=== PATIENT | female | born 1995 | race Caucasian/White ===

== ENCOUNTER 2018-11-12 04:22 | Emergency (ER) | payer OTHER ==
--- OUTSIDE RECORDS SUMMARY | 2018-11-12 04:25 | XMS REPORT ---
:1995 [facility] Address [address] [place] [address] [address] [place] [address] Care Team Providers Name Role Phone Harvinder Churchill Unavailable Unavailable Nehemiah Lui Unavailable Unavailable Problems This patient has no known problems. Allergies, Adverse Reactions, Alerts This patient has no known allergies or adverse reactions. Medications This patient has no known medications. Results Test Description Test Time Test Comments Text Results Atomic Results Result Comments [id number] 2017-05-13 SURGICAL 10:25:00 [facility] PATHOLOGY, [address] [place] [address] LEVEL V Laboratory Printed: 05/13/[address] [place] [address] DAEMPathology Page : 1 Patient: SERENE EGAN Birthdate: 1995 Age/Sex: 21/F Spec#: [id number]: Harvinder Churchill Jr, MD Specimen Date: 05/08/17 Received Date: 05/10/17 Specimen: PLACENTA, THIRD TRIMESTER CLINICAL DIAGNOSIS term IUP at 41 weeks with meconium with a postdate induction PATHOLOGIC DIAGNOSIS Placenta, delivery by section, clinical trimester third: Gross/microscopically determined trimester: Third. Gross features of placental disc: - Weight -- 504 grams. - Thickness -- 1.8 cm. - Shape/morphology -- Discoid. Gross features of umbilical cord: - Insertion -- Eccentric. - Number of vessels -- Three. - Length -- 47.0 cm. - Diameter -- 1.3 cm. Insertion of membrane: Circumvallate type. Microscopic findings: - Placental villi -- - Mature type. - Subchorionic fibrin deposits. - Subchorionic deposits of neutrophils. - membranes -- - Acute chorioamnionitis. - Areas of increased pigmented macrophages consistent with meconium staining. - Decidua -- Areas of acute deciduitis. Patient: SERENE EGAN Re07/21Loc: AMBER MR#: [id number] CONTINUED ON NEXT PAGE Dis: ta: DIS IN [address] [address] Laboratory Printed: 05/13/[address] [place] [address] DAEMPathology Page : 2 Patient: SERENE EGAN [id number] (Continued) PATHOLOGIC DIAGNOSIS (Continued) - Maternal vessels -- No significant pathologic changes identified. - Umbilical cord -- Acute funisitis. Pathologist:Maurice Caspre MD Entered by:05/13/17 0933 LAB.YGP PROCEDURES: [id number] GROSS DESCRIPTION A. PLACENTA, THIRD TRIMESTER PLACENTA AND CORD The specimen is received in 10% formalin, and is labeled with the patient's name and"placenta and cord". The specimen consists of a single discoid shaped placenta with atrimmed weight of 504 grams. The placenta measures 17.0 x 15.0 x 1.8 cm in greatestdimensions. The cord is located eccentrically 4.5 cm from the nearest margin. There aretwo portions of cord. The first attached portion measures 27.0 cm in length with a 1.4 cmdiameter. The second detached portion of cord measures 20.0 cm in length with a 1.3 cmdiameter. Cut sectioning of the umbilical cord reveals three vessels, and it has a slightgreen- yellow tinge. The membrane is inserted circumvallate. It is thin and semi-translucent with a green- yellow mucoid consistency throughout. The aspects have anoverall mucoid consistency with a slight green-yellow discoloration. Cut sectioning of thevessels reveal a harrington-white infarct- like discoloration measuring 1.0 x 0.8 x 0.8 cm justbelow the surface. The maternal aspects have a normal-appearing red-maroon cotyledonand upon cut sectioning reveals a red-maroon spongy cut surface with no additional grossabnormalities. Public Policy Analyst sections submitted in three cassettes , A1-3. Section code:A1 - cord and membraneA2 - aspectsA3 - maternal aspects Dictated by: Lizz Patel Entered by: 05/10/17 - 1114 LAB.YGP Patient: SERENE EGAN Re05/08/17Loc: AMBER MR#: [id number] CONTINUED ON NEXT PAGE Dis: ta: DIS IN [address] [address] Laboratory Printed: 05/13/[address] [place] [address] DAEMPathology Page : 3 Patient: SERENE EGAN [id number] (Continued) GROSS DESCRIPTION (Continued) MICROSCOPIC DESCRIPTION A microscopic examination was performed to arrive at the diagnostic conclusion reported. Signed _ (Electronically Signed) Maurice Casper MD 05/13/17 Patient: SERENE EGAN Re05/08/17Loc : AMBER MR#: [id number] END OF REPORT Dis: 05/11/17ta: DIS IN Hematology 2017-05-09 06:19:00 Test Item Value Reference Range Comments Hematology (test code=WBCT) 23.3 thou/uL 4.8-10.8 Hematology (test code=RBCT) 3.87 mill/uL 4.00-5.20 Hematology (test code=HGBT) 7.7 g/dL 12.0-16.0 Hematology (test code=HCTT) 23.9 % 36.0-47.0 Hematology (test code=MCV) 61.9 fl 77.0-87.0 Hematology (test code=MCH) 19.8 pg 25.0-35.0 Hematology (test code=MCHC) 32.0 g/dL 32.0-36.0 Hematology (test code=RDW) 13.9 % 11.5-14.5 Hematology (test code=PLTT) 224 thou/uL 130-400 Hematology (test code=MPV) 11.9 fL 7.4-10.4 ABG's - [id number] 23:25:00 Test Item Value Reference Range Comments ABG's - Cardiopulmonary (test code=pHC) 7.29 7.28-7.32 ABG's - Cardiopulmonary (test code=PcCO2) 50.6 mmHg 44.0-56.0 ABG's - Cardiopulmonary (test code=HCO3a) 24.0 mEq/L 22-26 ABG's - Cardiopulmonary (test code=Leslie) -3.2 mEq/L 0 (+/-) 2.5 Chemistry - [id number] 14:22:00 Test Item Value Reference Range Comments Chemistry - Specials (test code=THBSAG) Non-Reactive S/CO NonReactive [id number] 14:20:00 Test Item Value Reference Range Comments Immunology (test code=SYPHABT) Nonreactive Nonreactive [id number] 13:55:00 Test Item Value Reference Range Comments Hematology (test code=WBCT) 16.4 thou/uL 4.8-10.8 Hematology (test code=RBCT) 5.03 mill/uL 4.00-5.20 Hematology (test code=HGBT) 10.3 g/dL 12.0-16.0 Hematology (test code=HCTT) 31.1 % 36.0-47.0 Hematology (test code=MCV) 61.9 fl 77.0-87.0 Hematology (test code=MCH) 20.5 pg 25.0-35.0 Hematology (test code=MCHC) 33.2 g/dL 32.0-36.0 Hematology (test code=RDW) 14.2 % 11.5-14.5 Hematology (test code=PLTT) 268 thou/uL 130-400 Hematology (test code=MPV) 9.6 fL 7.4-10.4 [id number] 00:28:00 Test Item Value Reference Range Comments Urinalysis (test code=AMNI-T) No Membranes Rupture No Rupture Vaginitis Panel 3 by DNA [id number] 20:57:00 Test Item Value Reference Range Comments Vaginitis Panel 3 by DNA Probe (test code=VP3) VPIIICANDI Vaginitis Panel 3 by DNA Probe (test code=VP31) N Vaginitis Panel 3 by DNA Probe (test code=VP31) VPIIITRICH [id number] 20:19:00 Test Item Value Reference Range Comments Urinalysis (test code=UACLR) RUFINA Yellow Urinalysis (test code=UACLY) CLEAR Clear Urinalysis (test code=SPGR) 1.014 1.002-1.036 Urinalysis (test code=TRI) 6.0 5.0-9.0 Urinalysis (test code=UALEU) Negative Negative Urinalysis (test code=UANIT) Negative Negative Urinalysis (test code=PROUADIP) Negative mg/dL Neg-Trace Urinalysis (test code=GLUCU) 100 mg/dL Negative Urinalysis (test code=KETU) Negative mg/dL Negative Urinalysis (test code=UAUROB) 2.0 mg/dL 0.2-1.0 Urinalysis (test code=UABIL) Negative Negative Urinalysis (test code=UABLD) Negative Negative Urinalysis (test code=UARBC) 4-6 HPF 0-3 Urinalysis (test code=UAWBC) 0-3 HPF 0-3 Urinalysis (test code=UASQUAM) 0-3 HPF 0-3 Urinalysis (test code=UABAC) None Seen HPF None Seen Urinalysis (test code=UACAST) 0-3 HYALINE CAST LPF 0-3 Hyaline Urine Source: Urine Clean [id number] SURGICAL PATHOLOGY, LEVEL [id number] 15: 16:00 [place] [address] Laboratory Printed: 07/30/16 1517 [facility] DAEMPathology Fax: Page: 1 Patient: SERENE EGAN Birthdate: 1995 Age/Sex: 21/F Spec#: [id number]: Nehemiah Lui MD Specimen Date: 07/26/16 Received Date: 07/27/16 Specimen: PRODUCTS OF CONCEPTION CLINICAL DIAGNOSIS vaginal bleeding PATHOLOGIC DIAGNOSIS Tissue labeled "products of conception" (site unspecified): - Products of conception. Comment: Immature chorionic villi and decidualized endometrium are present. There is nogestational trophoblastic disease (complete or partial mole ) or neoplasmpresent. Pathologist:Remi Tilley MD Entered by:07/30/16 - 1325 LAB.YGP PROCEDURES: [id number] GROSS DESCRIPTION A. PRODUCTS OF CONCEPTION The specimen is received in 10% formalin, and is labeled with the patient's name and"products ofconception". The specimen consists of a pink-harrington oval shaped soft tissuefragment measuring 4.7 x 2.5 x 1.3 cm in greatest dimensions. Upon sectioning it reveals apink-harrington to red colored spongy surface and a cavity containing some fluid. No grosslyrecognizable tissue is identified. Public Policy Analyst sections are submitted in threecassettes, A1-3. Dictated by: LOLI GONZALEZ Patient: SERENE EGAN Re07/26/16Loc: EZEKIEL MR#: [id number] CONTINUED ON NEXT PAGE Dis: Sta: [facility] [address] [address] Laboratory Printed: 07/30/[address] [place] [address] [facility] Page: 2 Patient: SERENE EGAN [id number] (Continued) GROSS DESCRIPTION (Continued) Entered by: - [address] MICROSCOPIC DESCRIPTION A microscopic examination was performed to arrive at the diagnostic conclusion reported.Signed (Electronically Signed) Remi Tilley MD Patient: SERENE EGAN Re07/26/16Loc: EZEKIEL MR#: [id number] END OF REPORT Dis: Sta: DEP [id number] 22:21:00 Test Item Value Reference Range Comments Urinalysis (test Red Yellow code=UACLR) Urinalysis (test Cloudy Clear code=UACLY) Urinalysis (test 1.026 1.002-1.036 code=SPGR) Urinalysis (test 5.0 5.0-9.0 code=TRI) Urinalysis (test Unable to Interpret Negative Unable to perform code=UALEU) dipstick biochemicals due to colorinterference. A microscopic analysis will be performed. Urinalysis (test Unable to Interpret Negative Unable to perform code=UANIT) dipstick biochemicals due to colorinterference. A microscopic analysis will be performed. Urinalysis (test > or equal to 300 Neg-Trace code=PROUADIP) mg/dL Urinalysis (test Negative mg/dL Negative code=GLUCU) Urinalysis (test Trace mg/dL Negative code=KETU) Urinalysis (test UNABLE TO INTERPRET 0.2-1.0 Unable to perform code=UAUROB) mg/dL dipstick biochemicals due to colorinterference; test not performed. Urinalysis (test Negative Negative code=UABIL) Urinalysis (test Large Negative code=UABLD) Urinalysis (test GREATER THAN 50-TNTC 0-3 code=UARBC) HPF Urinalysis (test None Seen HPF 0-3 code=UAWBC) Urinalysis (test 0-3 HPF 0-3 code=UASQUAM) Urinalysis (test None Seen HPF None Seen code=UABAC) Urine Source: Urine Clean CatchChemistry - [id number] 21:43:00 Test Item Value Reference Range Comments Chemistry - Specials (test 23.69 mIU/mL See Ranges Males and Non code=HCGQ) females: Less than 10 mIU/mLPregnancy, weeks of gestation mIU/mL 0.2 - 1 week 5 - 50 1 - 2 weeks 50 - 500 2 - 3 weeks 100 - 5,000 3 - 4 weeks 500 - 10,000 4 - 5 weeks 1,000 - 50,000 5 - 6 weeks 10,000 - 100,000 6 - 8 weeks 15,000 - 200,000 2 - 3 months 10,000 - 100,000 [id number] 21:33:00 Test Item Value Reference Range Comments Hematology (test code=WBCT) 9.4 thou/uL 4.8-10.8 Hematology (test code=RBCT) 5.69 mill/uL 4.00-5.20 Hematology (test code=HGBT) 11.1 g/dL 12.0-16.0 Hematology (test code=HCTT) 34.4 % 36.0-47.0 Hematology (test code=MCV) 60.5 fl 77.0-87.0 Hematology (test code=MCH) 19.5 pg 25.0-35.0 Hematology (test code=MCHC) 32.2 g/dL 32.0-36.0 Hematology (test code=RDW) 14.0 % 11.5-14.5 Hematology (test code=PLTT) 306 thou/uL 130-400 Hematology (test code=MPV) 7.2 fL 7.4-10.4 Hematology (test code=%NEUT) 67.6 % 31.0-61.0 Hematology (test code=%LYMPH) 26.6 % 28.0-48.0 Hematology (test code=%MONO) 4.5 % 0.0-4.0 Hematology (test code=%EOS) 0.7 % 0.0-10.0 Hematology (test code=%BASO) 0.6 % 0.0-1.0 Hematology (test code=NEUT#) 6.3 thou/uL 1.40-6.50 Hematology (test code=LYMPH#) 2.5 thou/uL 1.20-3.40 Hematology (test code=MONO#) 0.4 thou/uL 0.11-0.59 Hematology (test code=EOS#) 0.1 thou/uL 0.0-0.7 Hematology (test code=BASO#) 0.1 thou/uL 0.0-0.2 Hematology (test code=IA) SLIGHT=6-15 cells (100X) 0-5/hpf Hematology (test code=PCOMMENT) Appears Adequate Type [id number] 21:19:00 Test Item Value Reference Range Comments Blood Type Rh (test code=BT) OP
--- NOTE | 2018-11-12 04:50 | EDPHYS ---
Physician Documentation [facility] Name: Kasia Aguilar Age: 23 yrs Sex: Female : 1995 Arrival Date: 11/12/2018 Time: 04:23 Bed 7 Private MD: ED Physician Davy Vaughn HPI: 11/12 04:44 This 23 yrs old Female presents to ER via Wheelchair with complaints of rn Epigastric Pain. 04:44 The patient presents with abdominal pain in the epigastric area, in the right upper rn quadrant. Onset: The symptoms/episode began/occurred yesterday. The symptoms do not radiate. Associated signs and symptoms: Pertinent positives: nausea and vomiting. Modifying factors: The symptoms are alleviated by nothing, the symptoms are aggravated by touching the area. Severity of pain: At its worst the pain was moderate in the emergency department the pain is unchanged. The patient has not experienced similar symptoms in the past. Reports approx 20 weeks preg, + upper abd pain since yesterday, sent here by her OB, was cleared by L\T\D, still having pain so brought down to ER. No previous gallbladder problems. No fever. NO lower abd pain. NO diarrhea.. TAKE DOWN INSPECTOR: 04:37 3, Full Term 1, Living 1, Verified tl2 Historical: - Allergies: 04:46 No Known Allergies; tl2 - Home Meds: 04:46 None [Active]; tl2 - PMHx: 04:46 None; tl2 - PSHx: 04:46 ; tl2 - Immunization history:: Adult Immunizations up to date. - Social history:: Smoking status: Patient/guardian denies using tobacco. - Family history:: not pertinent. - Ebola Screening: : No symptoms or risks identified at this time. - Hospitalizations: : No recent hospitalization is reported. ROS: 04:44 Constitutional: Negative for fever, chills, and weight loss, Eyes: Negative for injury, rn pain, redness, and discharge, Neck: Negative for injury, pain, and swelling, Cardiovascular: Negative for chest pain, palpitations, and edema, Respiratory: Negative for shortness of breath, cough, wheezing, and pleuritic chest pain, Abdomen/GI: + upper abd pain and nausea/vomiting MS/Extremity: Negative for injury and deformity, Skin: Negative for injury, rash, and discoloration, Neuro: Negative for headache, weakness, numbness, tingling, and seizure. Exam: 04:44 Constitutional: This is a well developed, well nourished patient who is awake, alert, rn appears in pain and holding emesis bag Head/Face: Normocephalic, atraumatic. Eyes: Pupils equal round and reactive to light, extra-ocular motions intact. Lids and lashes normal. Conjunctiva and sclera are non-icteric and not injected. Cornea within normal limits. Periorbital areas with no swelling, redness, or edema. ENT: MMM Cardiovascular: tachycardic, no murmur, regular Respiratory: No increased work of breathing, no retractions or nasal flaring. Abdomen/GI: soft, + epigastric and RUQ tenderness, no rebound, neg rodriguez Skin: Warm, dry with normal turgor. Normal color with no rashes, no lesions, and no evidence of cellulitis. MS/ Extremity: Pulses equal, no cyanosis. Neurovascular intact. Full, normal range of motion. Equal circumference. Neuro: Awake and alert, GCS 15, oriented to person, place, time, and situation. Cranial nerves II-XII grossly intact. Motor strength 5/5 in all extremities. Sensory grossly intact. Cerebellar exam normal. Normal gait. Vital Signs: 04:37 BP 124 / 79; Pulse 112; Resp 18; Pulse Ox 98% on R/A; Weight 56.7 kg; Height 5 ft. 5 tl2 in. (165.10 cm); Pain 8/10; 04:37 Body Mass Index 20.80 (56.70 kg, 165.10 cm) tl2 MDM: 04:44 Patient medically screened. rn 04:44 Differential diagnosis: cholecystitis, Cholelithiasis, gastritis, gastroesophageal rn reflux disease, pancreatitis. Data reviewed: vital signs, nurses notes. ED course: Had long discussion with patient regarding high possibility that this is gallbladder related, needs bloodwork and u/s. U/S will not come out at this institution for gallbladder u/s overnight. Told her my recommendation would be to wait until 0800 when our u/s arrives, and get bloodwork and pain medication. Patient states would rather leave then and be seen somewhere else where ultrasound is more readily available. Plans to drive to another hospital. Risks of leaving explained. Patient eloped prior to any labs or meds given.. Administered Medications: No medications were administered Disposition: 11/12/18 04:49 Patient left the facility after being seen by provider. Preliminary diagnosis is Cholelithiasis. - Patient left due to wait time. - Condition is Stable. - Problem is new. - Symptoms are unchanged. Signatures: Davy Vaughn MD MD rn Brianna Cornejo RN RN tl2 Corrections: (The following items were deleted from the chart) 04:53 04:49 11/12/2018 04:49 Patient left the facility after being seen by provider. tl2 Preliminary diagnosis is Cholelithiasis. Reason stated they are leaving due to wait time. Condition is Stable. Problem is new. Symptoms are unchanged. rn
--- NOTE | 2018-11-12 04:50 | ER ---
Nurse's Notes [facility] Name: Kasia Aguilar Age: 23 yrs Sex: Female : 1995 Arrival Date: 11/12/2018 Time: 04:23 Bed 7 Private MD: Diagnosis: Cholelithiasis Presentation: 11/12 04:33 Presenting complaint: Patient states: Pt previously seen in L\T\D department for tl2 abdominal pain 21 weeks . Cleared by OB and sent to ER to be evaluated for epigastric pain and RUQ pain. Transition of care: patient was not received from another setting of care. Onset of symptoms was November 12, 2018 at 03:00. Risk Assessment: Do you want to hurt yourself or someone else? Patient reports no desire to harm self or others. Initial Sepsis Screen: Does the patient meet any 2 criteria? No. Patient's initial sepsis screen is negative. Does the patient have a suspected source of infection? No. Patient's initial sepsis screen is negative. Care prior to arrival: None. 04:33 Method Of Arrival: Wheelchair tl2 04:33 Acuity: SHAUN 3 tl2 Triage Assessment: 04:46 General: Appears in no apparent distress. uncomfortable, Behavior is cooperative, tl2 appropriate for age, anxious. Pain: Complains of pain in RUQ. GI: Reports upper abdominal pain, epigastric pain, nausea. Derm: Skin is pale. INFECTION CONTROL MANAGER: 04:37 3, Full Term 1, Living 1, Verified tl2 Historical: - Allergies: 04:46 No Known Allergies; tl2 - Home Meds: 04:46 None [Active]; tl2 - PMHx: 04:46 None; tl2 - PSHx: 04:46 ; tl2 - Immunization history:: Adult Immunizations up to date. - Social history:: Smoking status: Patient/guardian denies using tobacco. - Family history:: not pertinent. - Ebola Screening: : No symptoms or risks identified at this time. - Hospitalizations: : No recent hospitalization is reported. Screenin:38 Abuse screen: Denies threats or abuse. Nutritional screening: No deficits noted. tl2 Tuberculosis screening: No symptoms or risk factors identified. Fall Risk None identified. Vital Signs: 04:37 BP 124 / 79; Pulse 112; Resp 18; Pulse Ox 98% on R/A; Weight 56.7 kg; Height 5 ft. 5 tl2 in. (165.10 cm); Pain 8/10; 04:37 Body Mass Index 20.80 (56.70 kg, 165.10 cm) tl2 ED Course: 04:23 Patient arrived in ED. ds1 04:32 Brianna Cornejo, RN is Primary Nurse. tl2 04:35 Triage completed. tl2 04:38 Patient has correct armband on for positive identification. Placed in gown. Bed in low tl2 position. Call light in reach. Side rails up X2. Adult w/ patient. 04:44 Davy Vaughn MD is Attending Physician. rn 04:46 Arm band placed on right wrist. tl2 04:51 No provider procedures requiring assistance completed. Patient did not have IV access tl2 during this emergency room visit. Administered Medications: No medications were administered Outcome: 04:51 Eloped from patient exam room, after seeing physician Pt preferred other treatment tl2 options after treatment offered by physician 04:51 Condition: stable 04:51 Instructed on follow up and referral plans. 04:53 Patient left the ED. tl2 Signatures: Liv Apple ds1 Davy Vaughn MD MD rn Knox, Taylor, RN RN tl2
== END 2018-11-12 04:53 | disposition left against medical advice (07) ==
LOC: ER 04:22
DX: O99.612 Diseases of the digestive system complicating pregnancy, second trimester (principal); Z3A.20 20 weeks gestation of pregnancy
CPT/HCPCS: 99281